=== PATIENT | male | born 1980 | race Hispanic/Latino ===

== ENCOUNTER 2019-04-04 07:53 | Outpatient (RCR) | payer OTHER | END 2019-04-18 | LOC: PT 07:53 | PROVIDERS: ATTEND Neurological Surgery | DX: M51.16 Intervertebral disc disorders with radiculopathy, lumbar region (principal); M53.86 Other specified dorsopathies, lumbar region; M79.601 Pain in right arm; M79.671 Pain in right foot; R26.2 Difficulty in walking, not elsewhere classified; M62.81 Muscle weakness (generalized) ==